=== PATIENT | male | born 1980 | race Caucasian/White ===

== ENCOUNTER 2016-12-09 05:50 | Emergency (ER) | payer BC ==
[~2016-12-09 05:50] MED LIST: ALPRAZOLAM0.5 MG PO; ASPIRIN CHEWABL81 MG PO; BUSPAR 10MG10 MG PO; KETAMINE; LIPITOR TAB 1010 MG PO; LISINOPRIL5 MG PO; METOPROLOL TART25 MG PO; NEURONTIN 300300 MG PO; NORCO 7.5-3251 EACH PO; NOVOLOG100 UNIT/1 SQ; OMNICEF 300 MG300 MG PO; PHENERGAN 12.12.5 M1 PO; PROTONIX40 MG PO; RANEXA500 MG PO; TYLENOL 325MG325 MG PO; XANAX0.5 MG PO; ZOFRAN 4 MG TAB4 MG PO; ZOFRAN ODT4 MG SL
[2016-12-09 07:46] LABS: HEMOGLOBIN 16.3 gm/dl (14.0-17.5); RED BLOOD COUNT 5.69 M/UL (4.20-5.50); WHITE BLOOD COUNT 7.8 K/UL (4.5-11.0)
[2016-12-09 08:00] LABS: BUN/CREATININE RATIO 13 (0-10)
== END 2016-12-09 16:40 | disposition home or self-care (01) ==
LOC: ER1 05:50
PROVIDERS: Physician Assistant Medical
DX: K76.0 Fatty (change of) liver, not elsewhere classified (principal); R00.0 Tachycardia, unspecified; R11.2 Nausea with vomiting, unspecified; E10.9 Type 1 diabetes mellitus without complications; F17.210 Nicotine dependence, cigarettes, uncomplicated
CPT/HCPCS: 36415; 80053; 81001; 82009; 82150; 82962; 83690; 84484; 85025; 96361; 96374; 96375; 99284; C9113; J2270; J2405; J2550; J7030; J7050

== ENCOUNTER 2016-12-10 17:24 | Inpatient (IN) | payer BC ==
[2016-12-10 22:27] LABS: HEMOGLOBIN 13.9 gm/dl (14.0-17.5); RED BLOOD COUNT 4.92 M/UL (4.20-5.50); WHITE BLOOD COUNT 12.9 K/UL (4.5-11.0)
[2016-12-10 22:38] LABS: BUN/CREATININE RATIO 13 (0-10)
[2016-12-11 05:27] LABS: HEMOGLOBIN 13.2 gm/dl (14.0-17.5); RED BLOOD COUNT 4.65 M/UL (4.20-5.50); WHITE BLOOD COUNT 10.5 K/UL (4.5-11.0)
[2016-12-11 05:43] LABS: BUN/CREATININE RATIO 12 (0-10)
[2016-12-11 12:14] LABS: BUN/CREATININE RATIO 11 (0-10)
[2016-12-11 17:35] LABS: BUN/CREATININE RATIO 9 (0-10)
[2016-12-11 22:48] LABS: BUN/CREATININE RATIO 6 (0-10)
[2016-12-12 04:03] LABS: HEMOGLOBIN 12.5 gm/dl (14.0-17.5); RED BLOOD COUNT 4.46 M/UL (4.20-5.50)
[2016-12-12 04:07] LABS: WHITE BLOOD COUNT 5.9 K/UL (4.5-11.0)
[2016-12-12 04:31] LABS: BUN/CREATININE RATIO 6 (0-10)
[2016-12-12 14:22] LABS: BUN/CREATININE RATIO 5 (0-10)
[2016-12-13 05:10] LABS: BUN/CREATININE RATIO 5 (0-10)
[2016-12-13] MEDS ORDERED: TYLENOL 325MG325 MG PO (10:21)
== END 2016-12-13 10:57 | disposition home or self-care (01) | DRG 74 ==
LOC: ER1 17:24 → ZEROF 12-11 02:25 → CCU 12-11 05:12
PROVIDERS: Family Medicine; Physician Assistant; Student in an Organized Health Care Education/Training Program; ADMIT Internal Medicine
PROC: 02HV33Z Insertion of Infusion Device into Superior Vena Cava, Percutaneous Approach (ICD-10-PCS; principal; 2016-12-11)
PROC: B548ZZA Ultrasonography of Superior Vena Cava, Guidance (ICD-10-PCS; 2016-12-11)
DX: E10.43 Type 1 diabetes mellitus with diabetic autonomic (poly)neuropathy (principal); K31.84 Gastroparesis; E10.10 Type 1 diabetes mellitus with ketoacidosis without coma; I10 Essential (primary) hypertension; E10.40 Type 1 diabetes mellitus with diabetic neuropathy, unspecified; R00.0 Tachycardia, unspecified; F17.200 Nicotine dependence, unspecified, uncomplicated; F41.9 Anxiety disorder, unspecified; Z96.41 Presence of insulin pump (external) (internal); Z79.891 Long term (current) use of opiate analgesic; Z79.899 Other long term (current) drug therapy; Z98.890 Other specified postprocedural states; Z83.3 Family history of diabetes mellitus; Z82.49 Family history of ischemic heart disease and other diseases of the circulatory system; Z80.9 Family history of malignant neoplasm, unspecified
CPT/HCPCS: 36415; 71010; 80048; 80053; 81001; 82009; 82150; 82800; 82962; 83690; 84484; 85025; 85027; 93005; 96361; 96372; 96374; 96375; 96376; 99285; C1751; C9113; J1200; J1815; J2270; J2405; J2550; J2765; J7030; J7050

== ENCOUNTER 2020-12-18 02:46 | Inpatient (IN) | payer OTHER ==
[~2020-12-18] VITALS: Ht 182.9 cm; Wt 99.3 kg
[~2020-12-18 02:46] MED LIST changes: +ALPRAZOLAM0.25 MG PO; +BASAGLAR K100 UNIT/1 SQ; +NEURONTIN 400400 MG PO; +NOVOLOG 10100 UNITS/ SQ; +PHENERGAN 25 MG25 M1 PO; +REGLAN10 MG PO; +T:SLIM1 EACH SQ; +TOPROL XL 25 MG25 MG PO; +ULTRAM50 MG PO
[2020-12-18 05:38] LABS: RED BLOOD COUNT 5.64 M/UL (4.20-5.50); WHITE BLOOD COUNT 18.6 K/UL (4.5-11.0)
[2020-12-18 06:59] LABS: BUN/CREATININE RATIO 19 (0-10)
[2020-12-18] MEDS ORDERED: ONDANSETRON HCL4 MG PO (10:41)
[2020-12-19 04:26] LABS: WHITE BLOOD COUNT 18.7 K/UL (4.5-11.0)
[2020-12-19 04:32] LABS: HEMOGLOBIN 13.8 gm/dl (14.0-17.5); RED BLOOD COUNT 4.89 M/UL (4.20-5.50)
[2020-12-19 04:45] LABS: BUN/CREATININE RATIO 25 (0-10)
[2020-12-20 02:32] LABS: HEMOGLOBIN 13.1 gm/dl (14.0-17.5); RED BLOOD COUNT 4.66 M/UL (4.20-5.50)
[2020-12-20 02:34] LABS: WHITE BLOOD COUNT 13.9 K/UL (4.5-11.0)
[2020-12-20 02:55] LABS: BUN/CREATININE RATIO 19 (0-10)
[2020-12-21 05:23] LABS: HEMOGLOBIN 13.2 gm/dl (14.0-17.5); RED BLOOD COUNT 4.75 M/UL (4.20-5.50); WHITE BLOOD COUNT 11.3 K/UL (4.5-11.0)
[2020-12-21 05:53] LABS: BUN/CREATININE RATIO 13 (0-10)
== END 2020-12-21 17:40 | disposition home or self-care (01) | DRG 74 ==
LOC: ER1 02:46 → MED SURG 4 09:45 → CDU 09:45 → MED SURG 4 09:45
PROVIDERS: Family Medicine; Internal Medicine; Physician Assistant Medical; ADMIT Family Medicine
DX: E10.43 Type 1 diabetes mellitus with diabetic autonomic (poly)neuropathy (principal); K56.609 Unspecified intestinal obstruction, unspecified as to partial versus complete obstruction; R65.10 Systemic inflammatory response syndrome (SIRS) of non-infectious origin without acute organ dysfunction; K31.84 Gastroparesis; D72.829 Elevated white blood cell count, unspecified; Z20.822 Contact with and (suspected) exposure to COVID-19; E10.65 Type 1 diabetes mellitus with hyperglycemia; E86.0 Dehydration; F41.0 Panic disorder [episodic paroxysmal anxiety]; E10.40 Type 1 diabetes mellitus with diabetic neuropathy, unspecified; F17.210 Nicotine dependence, cigarettes, uncomplicated; F41.9 Anxiety disorder, unspecified; Z82.49 Family history of ischemic heart disease and other diseases of the circulatory system; Z79.4 Long term (current) use of insulin
CPT/HCPCS: 36415; 80048; 80053; 81001; 82962; 83036; 83605; 83690; 83735; 85025; 85027; 87040; 93005; 96372; 96374; 96375; 96376; 99285; G0378; J1956; J2270; J2405; J2550; J7030; Q9967; U0002

== ENCOUNTER 2021-04-06 14:26 | Inpatient (IN) | payer OTHER ==
[~2021-04-06] VITALS: Ht 182.9 cm; Wt 99.9 kg
[~2021-04-06 14:26] MED LIST changes: +ONDANSETRON HCL4 MG PO
[2021-04-06 15:27] LABS: HEMOGLOBIN 15.5 gm/dl (14.0-17.5); RED BLOOD COUNT 5.48 M/UL (4.20-5.50); WHITE BLOOD COUNT 19.5 K/UL (4.5-11.0)
[2021-04-06 16:24] LABS: BUN/CREATININE RATIO 21 (0-10)
[2021-04-07 10:27] LABS: RED BLOOD COUNT 4.72 M/UL (4.20-5.50); WHITE BLOOD COUNT 21.7 K/UL (4.5-11.0)
[2021-04-07 10:28] LABS: HEMOGLOBIN 13.2 gm/dl (14.0-17.5)
[2021-04-07 10:44] LABS: BUN/CREATININE RATIO 20 (0-10)
[2021-04-08 04:17] LABS: HEMOGLOBIN 13.7 gm/dl (14.0-17.5); RED BLOOD COUNT 4.88 M/UL (4.20-5.50)
[2021-04-08 04:18] LABS: WHITE BLOOD COUNT 16.2 K/UL (4.5-11.0)
[2021-04-08 04:29] LABS: BUN/CREATININE RATIO 17 (0-10)
[2021-04-08] MEDS ORDERED: PHENERGAN 12.12.5 M1 PO (09:51)
[2021-04-08] MEDS ORDERED: ONDANSETRON HCL4 MG PO (09:51)
[2021-04-08] MEDS ORDERED: LOPRESSOR 25 MG25 MG PO (09:51)
[2021-04-09 05:10] LABS: HEMOGLOBIN 13.3 gm/dl (14.0-17.5); RED BLOOD COUNT 4.74 M/UL (4.20-5.50); WHITE BLOOD COUNT 13.2 K/UL (4.5-11.0)
[2021-04-09 05:28] LABS: BUN/CREATININE RATIO 16 (0-10)
== END 2021-04-09 20:28 | disposition home or self-care (01) | DRG 74 ==
LOC: ER1 14:26 → CDU 18:28 → MED SURG 4 21:59
PROVIDERS: Emergency Medicine; ADMIT Family Medicine
DX: E10.43 Type 1 diabetes mellitus with diabetic autonomic (poly)neuropathy (principal); R65.10 Systemic inflammatory response syndrome (SIRS) of non-infectious origin without acute organ dysfunction; K31.84 Gastroparesis; E10.65 Type 1 diabetes mellitus with hyperglycemia; E86.0 Dehydration; I10 Essential (primary) hypertension; D72.829 Elevated white blood cell count, unspecified; Z20.822 Contact with and (suspected) exposure to COVID-19; Z83.3 Family history of diabetes mellitus; Z80.9 Family history of malignant neoplasm, unspecified; Z82.49 Family history of ischemic heart disease and other diseases of the circulatory system; Z79.4 Long term (current) use of insulin; Z79.899 Other long term (current) drug therapy
CPT/HCPCS: 36415; 80048; 80053; 81001; 82550; 82553; 82962; 83605; 83690; 83874; 84484; 85025; 85027; 96365; 96374; 96375; 96376; 99284; G0378; J2270; J2405; J2550; J7030; Q9967; U0002

== ENCOUNTER 2021-04-20 20:08 | Inpatient (IN) | payer OTHER ==
[~2021-04-20] VITALS: Ht 182.9 cm; Wt 99.8 kg
[~2021-04-20 20:08] MED LIST changes: +LOPRESSOR 25 MG25 MG PO
[2021-04-20 21:00] LABS: HEMOGLOBIN 15.3 gm/dl (14.0-17.5); RED BLOOD COUNT 5.41 M/UL (4.20-5.50); WHITE BLOOD COUNT 19.5 K/UL (4.5-11.0)
[2021-04-20 21:35] LABS: BUN/CREATININE RATIO 17 (0-10)
[2021-04-21 12:20] LABS: HEMOGLOBIN 13.7 gm/dl (14.0-17.5); WHITE BLOOD COUNT 21.9 K/UL (4.5-11.0)
[2021-04-21 12:29] LABS: RED BLOOD COUNT 4.82 M/UL (4.20-5.50)
[2021-04-21 12:42] LABS: BUN/CREATININE RATIO 14 (0-10)
[2021-04-22 04:03] LABS: HEMOGLOBIN 14.4 gm/dl (14.0-17.5); RED BLOOD COUNT 5.07 M/UL (4.20-5.50)
[2021-04-22 04:34] LABS: BUN/CREATININE RATIO 19 (0-10)
[2021-04-23 07:04] LABS: HEMOGLOBIN 13.4 gm/dl (14.0-17.5); RED BLOOD COUNT 4.99 M/UL (4.20-5.50); WHITE BLOOD COUNT 13.4 K/UL (4.5-11.0)
[2021-04-23 07:17] LABS: BUN/CREATININE RATIO 13 (0-10)
[2021-04-24 03:17] LABS: HEMOGLOBIN 14.4 gm/dl (14.0-17.5); RED BLOOD COUNT 5.09 M/UL (4.20-5.50); WHITE BLOOD COUNT 12.9 K/UL (4.5-11.0)
[2021-04-24 03:41] LABS: BUN/CREATININE RATIO 10 (0-10)
[2021-04-25] MEDS ORDERED: ALPRAZOLAM0.25 MG PO (09:56)
[2021-04-25] MEDS ORDERED: ALPRAZOLAM0.5 MG PO (10:06)
== END 2021-04-25 13:30 | disposition home or self-care (01) | DRG 74 ==
LOC: ER1 20:08 → MED SURG 4 23:43 → CDU 23:43 → MED SURG 4 04-21 00:52
PROVIDERS: Internal Medicine; Physician Assistant; ADMIT Family Medicine
DX: E11.43 Type 2 diabetes mellitus with diabetic autonomic (poly)neuropathy (principal); E87.1 Hypo-osmolality and hyponatremia; R65.10 Systemic inflammatory response syndrome (SIRS) of non-infectious origin without acute organ dysfunction; Z20.822 Contact with and (suspected) exposure to COVID-19; K31.84 Gastroparesis; E11.40 Type 2 diabetes mellitus with diabetic neuropathy, unspecified; M19.90 Unspecified osteoarthritis, unspecified site; E11.65 Type 2 diabetes mellitus with hyperglycemia; E86.0 Dehydration; E87.6 Hypokalemia; F41.9 Anxiety disorder, unspecified; K21.9 Gastro-esophageal reflux disease without esophagitis; F12.10 Cannabis abuse, uncomplicated; F41.0 Panic disorder [episodic paroxysmal anxiety]; F17.220 Nicotine dependence, chewing tobacco, uncomplicated; Z79.4 Long term (current) use of insulin; Z90.49 Acquired absence of other specified parts of digestive tract; Z83.3 Family history of diabetes mellitus; Z82.49 Family history of ischemic heart disease and other diseases of the circulatory system; Z80.9 Family history of malignant neoplasm, unspecified; Z96.82 Presence of neurostimulator
CPT/HCPCS: 36415; 80048; 80053; 80307; 81001; 82550; 82553; 82962; 83605; 83874; 84484; 85025; 85027; 94760; 96374; 96375; 96376; 99284; G0378; J2270; J2405; J2550; J2765; J3480; J7030; U0002

== ENCOUNTER 2021-06-28 15:33 | Inpatient (IN) | payer OTHER ==
[~2021-06-28] VITALS: Ht 182.9 cm; Wt 88.9 kg
[2021-06-28 17:01] LABS: HEMOGLOBIN 14.8 gm/dl (14.0-17.5); RED BLOOD COUNT 5.28 M/UL (4.20-5.50); WHITE BLOOD COUNT 21.9 K/UL (4.5-11.0)
[2021-06-28 17:19] LABS: BUN/CREATININE RATIO 20 (0-10)
[2021-06-29 03:56] LABS: RED BLOOD COUNT 4.81 M/UL (4.20-5.50); WHITE BLOOD COUNT 23.6 K/UL (4.5-11.0)
[2021-06-29 04:20] LABS: BUN/CREATININE RATIO 21 (0-10)
[2021-06-30 09:04] LABS: HEMOGLOBIN 13.2 gm/dl (14.0-17.5); RED BLOOD COUNT 4.74 M/UL (4.20-5.50); WHITE BLOOD COUNT 13.3 K/UL (4.5-11.0)
[2021-06-30 09:46] LABS: BUN/CREATININE RATIO 15 (0-10)
[2021-07-01 07:33] LABS: HEMOGLOBIN 14.2 gm/dl (14.0-17.5); WHITE BLOOD COUNT 10.6 K/UL (4.5-11.0)
[2021-07-01 07:40] LABS: RED BLOOD COUNT 5.25 M/UL (4.20-5.50)
[2021-07-01 07:45] LABS: BUN/CREATININE RATIO 12 (0-10)
[2021-07-01] MEDS ORDERED: LOPRESSOR 25 MG25 MG PO (11:16)
[2021-07-01] MEDS ORDERED: ONDANSETRON HCL4 MG PO (11:16)
[2021-07-01] MEDS ORDERED: PHENERGAN 12.12.5 M1 PO (11:16)
== END 2021-07-02 14:10 | disposition home or self-care (01) | DRG 74 ==
LOC: ER1 15:33 → PROG CARE 17:59 → CDU 17:59 → M/S 17:59 → PROG CARE 22:27 → M/S 07-01 21:35
PROVIDERS: Emergency Medicine; Physician Assistant; ADMIT Family Medicine
DX: E10.43 Type 1 diabetes mellitus with diabetic autonomic (poly)neuropathy (principal); K31.84 Gastroparesis; E10.65 Type 1 diabetes mellitus with hyperglycemia; Z20.822 Contact with and (suspected) exposure to COVID-19; E86.0 Dehydration; E10.40 Type 1 diabetes mellitus with diabetic neuropathy, unspecified; H91.90 Unspecified hearing loss, unspecified ear; F41.0 Panic disorder [episodic paroxysmal anxiety]; E78.5 Hyperlipidemia, unspecified; M19.91 Primary osteoarthritis, unspecified site; K21.9 Gastro-esophageal reflux disease without esophagitis; R00.0 Tachycardia, unspecified; F17.210 Nicotine dependence, cigarettes, uncomplicated; Z95.0 Presence of cardiac pacemaker; Z95.1 Presence of aortocoronary bypass graft; Z90.49 Acquired absence of other specified parts of digestive tract; Z88.8 Allergy status to other drugs, medicaments and biological substances; Z83.3 Family history of diabetes mellitus; Z82.49 Family history of ischemic heart disease and other diseases of the circulatory system; Z79.4 Long term (current) use of insulin; Z79.899 Other long term (current) drug therapy
CPT/HCPCS: 36415; 71046; 80048; 80053; 80307; 81001; 82009; 82962; 83690; 85025; 85027; 96374; 96375; 99285; J2270; J2405; J2550; J2765; J7030; U0002

== ENCOUNTER 2021-08-01 16:15 | Inpatient (IN) | payer OTHER ==
[~2021-08-01] VITALS: Ht 182.9 cm; Wt 86.2 kg
[2021-08-01 17:39] LABS: HEMOGLOBIN 15.2 gm/dl (14.0-17.5); RED BLOOD COUNT 5.32 M/UL (4.20-5.50); WHITE BLOOD COUNT 15.4 K/UL (4.5-11.0)
[2021-08-01 17:57] LABS: BUN/CREATININE RATIO 16 (0-10)
--- NOTE | 2021-08-01 23:55 | NUR ---
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
[2021-08-02 12:31] LABS: HEMOGLOBIN 13.8 gm/dl (14.0-17.5); RED BLOOD COUNT 4.86 M/UL (4.20-5.50)
[2021-08-02 12:32] LABS: WHITE BLOOD COUNT 20.9 K/UL (4.5-11.0)
[2021-08-02 13:37] LABS: BUN/CREATININE RATIO 16 (0-10)
[2021-08-03 09:16] LABS: HEMOGLOBIN 13.7 gm/dl (14.0-17.5); RED BLOOD COUNT 4.82 M/UL (4.20-5.50)
[2021-08-03 09:20] LABS: WHITE BLOOD COUNT 8.8 K/UL (4.5-11.0)
[2021-08-03 09:41] LABS: BUN/CREATININE RATIO 10 (0-10)
[2021-08-04 07:26] LABS: HEMOGLOBIN 13.3 gm/dl (14.0-17.5); RED BLOOD COUNT 4.89 M/UL (4.20-5.50); WHITE BLOOD COUNT 7.8 K/UL (4.5-11.0)
[2021-08-04 07:40] LABS: BUN/CREATININE RATIO 9 (0-10)
[2021-08-04] MEDS ORDERED: OMNICEF 300 MG300 MG PO (11:37)
== END 2021-08-04 13:00 | disposition home or self-care (01) | DRG 74 ==
LOC: ER1 16:15 → CDU 19:15 → M/S 20:49
PROVIDERS: Emergency Medicine; ADMIT Family Medicine
DX: E10.43 Type 1 diabetes mellitus with diabetic autonomic (poly)neuropathy (principal); K31.84 Gastroparesis; Z20.822 Contact with and (suspected) exposure to COVID-19; I10 Essential (primary) hypertension; F41.9 Anxiety disorder, unspecified; E10.42 Type 1 diabetes mellitus with diabetic polyneuropathy; F17.210 Nicotine dependence, cigarettes, uncomplicated; E86.0 Dehydration; H66.90 Otitis media, unspecified, unspecified ear; E10.65 Type 1 diabetes mellitus with hyperglycemia; E78.5 Hyperlipidemia, unspecified; Z96.82 Presence of neurostimulator; Z90.49 Acquired absence of other specified parts of digestive tract; Z82.49 Family history of ischemic heart disease and other diseases of the circulatory system
CPT/HCPCS: 80048; 80053; 81001; 82009; 82962; 83690; 85025; 85027; 96374; 96375; 96376; 99284; J0696; J1885; J2270; J2405; J2550; J7030

== ENCOUNTER 2021-08-09 13:23 | Inpatient (IN) | payer OTHER ==
[~2021-08-09] VITALS: Ht 182.9 cm; Wt 90.7 kg
[2021-08-09 14:05] LABS: RED BLOOD COUNT 5.35 M/UL (4.20-5.50); WHITE BLOOD COUNT 18.6 K/UL (4.5-11.0)
[2021-08-09 14:32] LABS: BUN/CREATININE RATIO 13 (0-10)
[2021-08-09] MEDS ORDERED: GABAPENTIN800 MG PO (15:21)
[2021-08-09] MEDS ORDERED: ALPRAZOLAM0.5 MG PO (15:21)
[2021-08-09] MEDS ORDERED: BASAGLAR K100 UNIT/1 SQ (15:22)
[2021-08-09] MEDS ORDERED: NOVOLOG 10100 UNITS/ SQ (15:22)
[2021-08-10 06:46] LABS: HEMOGLOBIN 13.2 gm/dl (14.0-17.5)
[2021-08-10 06:47] LABS: RED BLOOD COUNT 4.73 M/UL (4.20-5.50)
[2021-08-10 07:04] LABS: BUN/CREATININE RATIO 11 (0-10)
[2021-08-11] MEDS ORDERED: PHENERGAN 12.12.5 M1 PO (11:55)
[2021-08-11] MEDS ORDERED: OMNICEF 300 MG300 MG PO (11:55)
[2021-08-11] MEDS ORDERED: ZOFRAN4 MG PO (11:55)
[2021-08-11 12:47] LABS: HEMOGLOBIN 13.3 gm/dl (14.0-17.5); RED BLOOD COUNT 4.71 M/UL (4.20-5.50); WHITE BLOOD COUNT 11.2 K/UL (4.5-11.0)
[2021-08-11 13:15] LABS: BUN/CREATININE RATIO 9 (0-10)
== END 2021-08-12 17:20 | disposition home or self-care (01) | DRG 74 ==
LOC: ER1 13:23 → CDU 15:06 → MED SURG 4 16:52
PROVIDERS: Emergency Medicine; ADMIT Family Medicine
DX: E10.43 Type 1 diabetes mellitus with diabetic autonomic (poly)neuropathy (principal); K31.84 Gastroparesis; F17.210 Nicotine dependence, cigarettes, uncomplicated; F12.90 Cannabis use, unspecified, uncomplicated; Z20.822 Contact with and (suspected) exposure to COVID-19; K21.9 Gastro-esophageal reflux disease without esophagitis; E10.40 Type 1 diabetes mellitus with diabetic neuropathy, unspecified; E78.5 Hyperlipidemia, unspecified; I10 Essential (primary) hypertension; E10.65 Type 1 diabetes mellitus with hyperglycemia; F41.9 Anxiety disorder, unspecified; Z79.4 Long term (current) use of insulin; Z95.0 Presence of cardiac pacemaker; Z82.49 Family history of ischemic heart disease and other diseases of the circulatory system; Z83.3 Family history of diabetes mellitus
CPT/HCPCS: 80048; 80053; 81001; 82962; 83690; 83735; 84100; 85025; 85027; 96374; 96375; 99284; J0696; J1885; J2270; J2405; J2550; J7030; U0002

== ENCOUNTER 2021-08-25 16:38 | Inpatient (IN) | payer OTHER ==
[~2021-08-25] VITALS: Ht 182.9 cm; Wt 90.7 kg
[~2021-08-25 16:38] MED LIST changes: +GABAPENTIN800 MG PO; +ZOFRAN4 MG PO
[2021-08-25 17:33] LABS: HEMOGLOBIN 15.5 gm/dl (14.0-17.5); RED BLOOD COUNT 5.39 M/UL (4.20-5.50); WHITE BLOOD COUNT 15.3 K/UL (4.5-11.0)
[2021-08-25 18:03] LABS: BUN/CREATININE RATIO 17 (0-10)
[2021-08-26 06:58] LABS: RED BLOOD COUNT 4.97 M/UL (4.20-5.50)
[2021-08-26 07:04] LABS: WHITE BLOOD COUNT 9.2 K/UL (4.5-11.0)
[2021-08-26 08:23] LABS: BUN/CREATININE RATIO 16 (0-10)
[2021-08-26] MEDS ORDERED: METOPROLOL TART25 MG PO (14:11)
[2021-08-26] MEDS ORDERED: BASAGLAR K100 UNIT/1 SQ (18:00)
[2021-08-27 07:23] LABS: HEMOGLOBIN 14.3 gm/dl (14.0-17.5); RED BLOOD COUNT 4.99 M/UL (4.20-5.50)
[2021-08-27 07:24] LABS: WHITE BLOOD COUNT 19.2 K/UL (4.5-11.0)
[2021-08-27 08:29] LABS: BUN/CREATININE RATIO 16 (0-10)
[2021-08-28 07:56] LABS: HEMOGLOBIN 13.1 gm/dl (14.0-17.5); RED BLOOD COUNT 4.76 M/UL (4.20-5.50); WHITE BLOOD COUNT 15.6 K/UL (4.5-11.0)
[2021-08-28 08:12] LABS: BUN/CREATININE RATIO 14 (0-10)
[2021-08-29 06:57] LABS: HEMOGLOBIN 12.9 gm/dl (14.0-17.5); RED BLOOD COUNT 4.58 M/UL (4.20-5.50); WHITE BLOOD COUNT 12.5 K/UL (4.5-11.0)
[2021-08-29 07:40] LABS: BUN/CREATININE RATIO 13 (0-10)
== END 2021-08-29 14:30 | disposition home or self-care (01) | DRG 74 ==
LOC: ER1 16:38 → M/S 18:48 → CDU 18:48 → M/S 20:52
PROVIDERS: Emergency Medicine; Internal Medicine; Internal Medicine Infectious Disease; ADMIT Family Medicine
DX: E11.43 Type 2 diabetes mellitus with diabetic autonomic (poly)neuropathy (principal); K31.84 Gastroparesis; E11.40 Type 2 diabetes mellitus with diabetic neuropathy, unspecified; Z20.822 Contact with and (suspected) exposure to COVID-19; E86.0 Dehydration; E11.65 Type 2 diabetes mellitus with hyperglycemia; F12.10 Cannabis abuse, uncomplicated; F41.9 Anxiety disorder, unspecified; I10 Essential (primary) hypertension; J30.9 Allergic rhinitis, unspecified; E78.5 Hyperlipidemia, unspecified; M19.90 Unspecified osteoarthritis, unspecified site; K21.9 Gastro-esophageal reflux disease without esophagitis; F17.220 Nicotine dependence, chewing tobacco, uncomplicated; Z95.0 Presence of cardiac pacemaker; Z90.49 Acquired absence of other specified parts of digestive tract; Z80.9 Family history of malignant neoplasm, unspecified; Z83.3 Family history of diabetes mellitus; Z82.49 Family history of ischemic heart disease and other diseases of the circulatory system; Z79.4 Long term (current) use of insulin
CPT/HCPCS: 36415; 80053; 81001; 82962; 83690; 85025; 85027; 96374; 96375; 96376; 99284; G0378; J2270; J2405; J2550; J7030; U0002

== ENCOUNTER → 2021-09-30 | Day surgery (SDC) | payer OTHER ==
[~2021-09-30] MED LIST changes: +IBUPROFEN800 MG PO
== END | disposition home or self-care (01) ==
LOC: OR 05:36
DX: I87.8 Other specified disorders of veins (principal); K31.84 Gastroparesis; I10 Essential (primary) hypertension; K21.9 Gastro-esophageal reflux disease without esophagitis; E78.5 Hyperlipidemia, unspecified; K58.9 Irritable bowel syndrome, unspecified; I47.1 Supraventricular tachycardia; I25.2 Old myocardial infarction; Z79.4 Long term (current) use of insulin; F17.210 Nicotine dependence, cigarettes, uncomplicated; Z20.822 Contact with and (suspected) exposure to COVID-19; E10.42 Type 1 diabetes mellitus with diabetic polyneuropathy
CPT/HCPCS: 71045; 77001; 82962; C1769; C1788; J0690; J1100; J1642; J2250; J2405; J2704; J3010; J7040; J7120

== ENCOUNTER 2021-10-26 13:44 | Inpatient (IN) | payer OTHER ==
[~2021-10-26] VITALS: Ht 182.9 cm; Wt 90.3 kg
[2021-10-26 15:17] LABS: HEMOGLOBIN 14.1 gm/dl (14.0-17.5); RED BLOOD COUNT 4.99 M/UL (4.20-5.50); WHITE BLOOD COUNT 13.6 K/UL (4.5-11.0)
[2021-10-26] MEDS ORDERED: ALPRAZOLAM0.5 MG PO (15:21)
[2021-10-26 15:36] LABS: BUN/CREATININE RATIO 13 (0-10)
[2021-10-26] MEDS ORDERED: BASAGLAR K100 UNIT/1 SQ (18:00)
[2021-10-27 10:04] LABS: HEMOGLOBIN 13.3 gm/dl (14.0-17.5); RED BLOOD COUNT 4.86 M/UL (4.20-5.50); WHITE BLOOD COUNT 22.1 K/UL (4.5-11.0)
[2021-10-27 10:25] LABS: BUN/CREATININE RATIO 18 (0-10)
--- NOTE | 2021-10-27 15:14 | NUR ---
10/27/21 1510 REPORT CALLED TO ELIZABETH, TO BE TRANSFERRED TO ROOM [id number]
[2021-10-28 07:36] LABS: RED BLOOD COUNT 4.73 M/UL (4.20-5.50)
[2021-10-28 07:44] LABS: WHITE BLOOD COUNT 13.1 K/UL (4.5-11.0)
[2021-10-28 08:09] LABS: BUN/CREATININE RATIO 13 (0-10)
[2021-10-28] MEDS ORDERED: LOPRESSOR 25 MG25 MG PO (11:14)
[2021-10-28] MEDS ORDERED: GABAPENTIN800 MG PO (11:14)
[2021-10-28] MEDS ORDERED: OMNICEF 300 MG300 MG PO (11:14)
[2021-10-28] MEDS ORDERED: BASAGLAR K100 UNIT/1 SQ (11:14)
[2021-10-28] MEDS ORDERED: ALPRAZOLAM0.5 MG PO (11:14)
[2021-10-29 04:32] LABS: HEMOGLOBIN 12.7 gm/dl (14.0-17.5); RED BLOOD COUNT 4.68 M/UL (4.20-5.50); WHITE BLOOD COUNT 10.5 K/UL (4.5-11.0)
[2021-10-29 04:48] LABS: BUN/CREATININE RATIO 10 (0-10)
[2021-10-29] MEDS ORDERED: ZOFRAN 4 MG TAB4 MG PO (15:26)
== END 2021-10-29 17:04 | disposition home or self-care (01) | DRG 74 ==
LOC: ER1 13:44 → CDU 16:45 → 3 EAST 10-27 00:56 → MED SURG 4 10-27 11:33
PROVIDERS: Emergency Medicine; ADMIT Family Medicine
DX: E10.43 Type 1 diabetes mellitus with diabetic autonomic (poly)neuropathy (principal); K31.84 Gastroparesis; J32.9 Chronic sinusitis, unspecified; Z20.822 Contact with and (suspected) exposure to COVID-19; I10 Essential (primary) hypertension; E78.5 Hyperlipidemia, unspecified; E86.0 Dehydration; F17.210 Nicotine dependence, cigarettes, uncomplicated; E10.40 Type 1 diabetes mellitus with diabetic neuropathy, unspecified; E10.65 Type 1 diabetes mellitus with hyperglycemia; F41.9 Anxiety disorder, unspecified; Z56.0 Unemployment, unspecified; Z79.4 Long term (current) use of insulin; Z96.82 Presence of neurostimulator; Z90.49 Acquired absence of other specified parts of digestive tract
CPT/HCPCS: 36415; 80048; 80053; 82009; 82962; 83690; 85025; 85027; 96374; 96375; 96376; 99285; G0378; J0696; J1642; J2270; J2405; J2550; U0002

== ENCOUNTER 2021-11-16 12:09 | Inpatient (IN) | payer OTHER ==
[~2021-11-16] VITALS: Ht 182.9 cm; Wt 90.7 kg
[2021-11-16 14:00] LABS: HEMOGLOBIN 14.2 gm/dl (14.0-17.5); RED BLOOD COUNT 5.02 M/UL (4.20-5.50); WHITE BLOOD COUNT 18.2 K/UL (4.5-11.0)
[2021-11-16 14:18] LABS: BUN/CREATININE RATIO 18 (0-10)
[2021-11-16] MEDS ORDERED: GABAPENTIN800 MG PO (16:17)
[2021-11-17 07:36] LABS: BUN/CREATININE RATIO 22 (0-10)
[2021-11-18 03:30] LABS: HEMOGLOBIN 12.8 gm/dl (14.0-17.5); RED BLOOD COUNT 4.63 M/UL (4.20-5.50)
[2021-11-18 03:33] LABS: WHITE BLOOD COUNT 9.8 K/UL (4.5-11.0)
[2021-11-18 03:52] LABS: BUN/CREATININE RATIO 18 (0-10)
== END 2021-11-18 17:00 | disposition home or self-care (01) | DRG 74 ==
LOC: ER1 12:09 → CCU 15:49 → CDU 15:49 → CCU 21:37 → PROG CARE 11-17 22:18
PROVIDERS: Physician Assistant; ADMIT Family Medicine
DX: E10.43 Type 1 diabetes mellitus with diabetic autonomic (poly)neuropathy (principal); E10.10 Type 1 diabetes mellitus with ketoacidosis without coma; Z20.822 Contact with and (suspected) exposure to COVID-19; K31.84 Gastroparesis; E86.0 Dehydration; I10 Essential (primary) hypertension; E78.5 Hyperlipidemia, unspecified; E10.40 Type 1 diabetes mellitus with diabetic neuropathy, unspecified; F17.200 Nicotine dependence, unspecified, uncomplicated; M19.91 Primary osteoarthritis, unspecified site; J32.9 Chronic sinusitis, unspecified; Z79.4 Long term (current) use of insulin; Z79.899 Other long term (current) drug therapy; Z95.828 Presence of other vascular implants and grafts; Z95.0 Presence of cardiac pacemaker; Z90.49 Acquired absence of other specified parts of digestive tract; Z88.8 Allergy status to other drugs, medicaments and biological substances
CPT/HCPCS: 36415; 80048; 80053; 81001; 82009; 82800; 82962; 83690; 85025; 85027; 96374; 96375; 96376; 99285; J0696; J2270; J2405; J2550; J7030; U0002

== ENCOUNTER 2022-05-10 08:24 | Inpatient (IN) | payer OTHER ==
[~2022-05-10] VITALS: Ht 182.9 cm; Wt 90.7 kg
[~2022-05-10 08:24] MED LIST changes: +DIPHENHYDR50 MG/1 ML INJ; +ONDANSETRON4 MG/2 ML INJ; +PHENERGAN IM25 MG/ML IM
[2022-05-10 09:21] LABS: HEMOGLOBIN 13.2 gm/dl (14.0-17.5); RED BLOOD COUNT 4.84 M/UL (4.20-5.50); WHITE BLOOD COUNT 12.9 K/UL (4.5-11.0)
[2022-05-10 09:50] LABS: BUN/CREATININE RATIO 15 (0-10)
[2022-05-11 06:51] LABS: HEMOGLOBIN 12.2 gm/dl (14.0-17.5); RED BLOOD COUNT 4.78 M/UL (4.20-5.50); WHITE BLOOD COUNT 11.4 K/UL (4.5-11.0)
[2022-05-11 07:14] LABS: BUN/CREATININE RATIO 14 (0-10)
--- NOTE | 2022-05-11 13:01 | NUR ---
05/11/22 1255 C/O BLOOD SUGAR LOW CHECKED 67 ORANGE JUICE PROVIDED PER PATIENT REQUEST
--- NOTE | 2022-05-11 13:33 | NUR ---
05/11/22 1330 RECHECK BS 130
[2022-05-12 06:07] LABS: HEMOGLOBIN 12.2 gm/dl (14.0-17.5); RED BLOOD COUNT 4.54 M/UL (4.20-5.50)
[2022-05-12 06:16] LABS: WHITE BLOOD COUNT 7.6 K/UL (4.5-11.0)
[2022-05-12 06:43] LABS: BUN/CREATININE RATIO 14 (0-10)
[2022-05-12] MEDS ORDERED: PROTONIX 40 MG40 M1 PO (10:32)
[2022-05-12] MEDS ORDERED: BASAGLAR K100 UNIT/1 SQ (10:32)
[2022-05-12] MEDS ORDERED: METOPROLOL SUCC25 MG PO (10:32)
== END 2022-05-12 11:40 | disposition home or self-care (01) | DRG 74 ==
LOC: ER1 08:24 → CDU 12:05 → MED SURG 4 18:29
PROVIDERS: Family Medicine; ADMIT Family Medicine
DX: E10.43 Type 1 diabetes mellitus with diabetic autonomic (poly)neuropathy (principal); K31.84 Gastroparesis; E10.65 Type 1 diabetes mellitus with hyperglycemia; E10.40 Type 1 diabetes mellitus with diabetic neuropathy, unspecified; F41.9 Anxiety disorder, unspecified; I10 Essential (primary) hypertension; M19.91 Primary osteoarthritis, unspecified site; K22.2 Esophageal obstruction; K21.00 Gastro-esophageal reflux disease with esophagitis, without bleeding; Z95.0 Presence of cardiac pacemaker; Z90.49 Acquired absence of other specified parts of digestive tract; Z95.1 Presence of aortocoronary bypass graft; Z98.890 Other specified postprocedural states; Z82.49 Family history of ischemic heart disease and other diseases of the circulatory system; Z83.3 Family history of diabetes mellitus; Z79.4 Long term (current) use of insulin
CPT/HCPCS: 36415; 74018; 80048; 80053; 82009; 82803; 82962; 83605; 83690; 85025; 85027; 96374; 96375; 96376; 99285; C9113; J2270; J2405; J2550

== ENCOUNTER 2022-07-10 04:44 | Inpatient (IN) | payer OTHER ==
[~2022-07-10] VITALS: Ht 182.9 cm; Wt 89.0 kg
[~2022-07-10 04:44] MED LIST changes: +METOPROLOL SUCC25 MG PO; +PROTONIX 40 MG40 M1 PO
[2022-07-10 05:46] LABS: HEMOGLOBIN 12.6 gm/dl (14.0-17.5); RED BLOOD COUNT 4.71 M/UL (4.20-5.50); WHITE BLOOD COUNT 18.2 K/UL (4.5-11.0)
[2022-07-10 07:47] LABS: BUN/CREATININE RATIO 24 (0-10)
[2022-07-10 12:32] LABS: BUN/CREATININE RATIO 29 (0-10)
[2022-07-10] MEDS ORDERED: BASAGLAR K100 UNIT/1 SQ (14:55)
[2022-07-10] MEDS ORDERED: XANAX0.5 MG PO (14:56)
[2022-07-10 15:31] LABS: BUN/CREATININE RATIO 28 (0-10)
[2022-07-10 19:32] LABS: BUN/CREATININE RATIO 23 (0-10)
[2022-07-10 23:22] LABS: BUN/CREATININE RATIO 22 (0-10)
[2022-07-11 04:51] LABS: WHITE BLOOD COUNT 16.1 K/UL (4.5-11.0)
[2022-07-11 04:52] LABS: RED BLOOD COUNT 4.09 M/UL (4.20-5.50)
[2022-07-11 09:09] LABS: BUN/CREATININE RATIO 15 (0-10)
[2022-07-11 14:36] LABS: BUN/CREATININE RATIO 9 (0-10)
[2022-07-12 05:09] LABS: BUN/CREATININE RATIO 4 (0-10)
[2022-07-12] MEDS ORDERED: PROTONIX40 MG PO (09:34)
[2022-07-12] MEDS ORDERED: LISINOPRIL5 MG PO (09:34)
[2022-07-12 09:55] LABS: RED BLOOD COUNT 4.52 M/UL (4.20-5.50)
== END 2022-07-12 13:48 | disposition home or self-care (01) | DRG 639 ==
LOC: ER1 04:44 → CDU 10:23 → CCU 11:27
PROVIDERS: Internal Medicine Critical Care Medicine; Physician Assistant; ADMIT Family Medicine
DX: E10.10 Type 1 diabetes mellitus with ketoacidosis without coma (principal); E10.43 Type 1 diabetes mellitus with diabetic autonomic (poly)neuropathy; K31.84 Gastroparesis; I10 Essential (primary) hypertension; E78.5 Hyperlipidemia, unspecified; F41.9 Anxiety disorder, unspecified; M19.90 Unspecified osteoarthritis, unspecified site; K21.9 Gastro-esophageal reflux disease without esophagitis; E86.0 Dehydration; I16.0 Hypertensive urgency; Z96.89 Presence of other specified functional implants; F17.210 Nicotine dependence, cigarettes, uncomplicated; F12.10 Cannabis abuse, uncomplicated; E87.6 Hypokalemia; D72.828 Other elevated white blood cell count; F91.3 Oppositional defiant disorder; M51.36 Other intervertebral disc degeneration, lumbar region; E10.42 Type 1 diabetes mellitus with diabetic polyneuropathy; Z79.4 Long term (current) use of insulin; Z90.49 Acquired absence of other specified parts of digestive tract; Z83.3 Family history of diabetes mellitus; Z82.49 Family history of ischemic heart disease and other diseases of the circulatory system; Z80.9 Family history of malignant neoplasm, unspecified
CPT/HCPCS: 36415; 36600; 80048; 80053; 81001; 82009; 82150; 82800; 82803; 82962; 83605; 83690; 83735; 84132; 85025; 85027; 87086; 93005; 96374; 96375; 99285; C9113; J0360; J1170; J1650; J2270; J2405; J2550; J3480; Q9967